=== PATIENT | female | born 1990 | race American Indian/Alaskan Native ===

== ENCOUNTER 2017-07-22 20:00 | Emergency (ER) | payer OTHER ==
[2017-07-22] MEDS ORDERED: NACL 0.9% 1000 ML 1,000 ML IV ONE (22:06)
[2017-07-22] MEDS ORDERED: TORADOL IV ONE (22:06)
[2017-07-22] MEDS ORDERED: ZOFRAN IV ONE (22:06)
--- NOTE | 2017-07-22 22:06 | Emergency Department Report ---
Chief Complaint: Abdominal Pain Stated Complaint: ABD/BACK PAIN Time Seen by Provider: 07/22/17 21:48 - HPI History of Present Illness: Patient is a 27-year-old female presenting with epigastric right upper quadrant and back pain. Patient states pain off and on for the past 2 weeks was been consistent for the last day. Patient is complaining of nausea vomiting also starting today. Patient denies fever diarrhea lower abdominal pain dysuria vaginal discharge at this time. Patient states that the pain is an 8 out of 10 in severity and is crampy - ROS Review of Systems: Review of systems is negative other than the elements in the HPI - Exam Vital Signs: Vital Signs 07/22/17 20:26 Temperature 98.7 F Pulse Rate 86 Respiratory 18 Rate Blood Pressure 128/84 O2 Sat by Pulse 100 Oximetry Physical Exam: Focused physical exam shows epigastric tenderness as well as right upper quadrant tenderness no rebound or guarding normal bowel sounds MSE screening note: Focused history and physical exam performed. Due to findings the following was ordered: Abdominal order set has been ordered as well as a ultrasound of her gallbladder patient will be moved to [place] given pain medicine ED Disposition for MSE Condition: Stable Instructions: Abdominal Pain (ED)
[2017-07-22] MEDS ORDERED: PEPCID IV ONE (22:08)
[2017-07-22 22:39] LABS: Basophils % (Auto) 0.1 % (0.0-1.8); Eosinophils % (Auto) 0.7 % (0.0-4.3); Hematocrit 38.4 % (30.3-42.9); Hemoglobin 12.7 gm/dl (10.1-14.3); Mean Corpuscular HGB Conc 33 % (30-34); Mean Corpuscular Hemoglobin 28 pg (28-32); Mean Corpuscular Volume 86 fl (79-97); Platelet Count 199 K/mm3 (140-440); Red Blood Count 4.48 M/mm3 (3.65-5.03); Red Cell Distribution Width 12.8 % (13.2-15.2); White Blood Count 9.1 K/mm3 (4.5-11.0)
[2017-07-22 23:24] LABS: Alanine Aminotransferase 10 units/L (7-56); Albumin 4.6 g/dL (3.9-5); Albumin/Globulin Ratio 1.2 %; Alkaline Phosphatase 55 units/L (35-129); Anion Gap 17 mmol/L; BUN/Creatinine Ratio 16; Blood Urea Nitrogen 8 mg/dL (7-17); Carbon Dioxide 25 mmol/L (22-30); Chloride 100.9 mmol/L (98-107); Glucose 97 mg/dL (65-100); Lipase 25 units/L (13-60); Potassium 3.9 mmol/L (3.6-5.0); Sodium 139 mmol/L (137-145); Total Protein 8.3 g/dL (6.3-8.2)
--- NOTE | 2017-07-22 23:27 | Ultrasound Report ---
FINAL REPORT PROCEDURE: Limited abdominal ultrasound. TECHNIQUE: Real-time sonography was performed of the right upper quadrant of the abdomen with image documentation. CPT 56560 HISTORY: Right upper quadrant abdominal pain. COMPARISON: No prior studies are available for comparison. FINDINGS: The liver appears homogeneous without focal masses. The portal vein is patent by color flow imaging. The common bile duct measures 2.8 millimeters. The gallbladder is adequately distended with normal wall thickness. There are numerous echogenic gallstones with acoustical shadowing. The technologist recorded a positive Dick sign. The pancreas appears normal. The right kidney is normal in size and has normal echogenicity. There is a small cyst in the right kidney measuring 9 millimeters in maximum diameter. IMPRESSION: Cholelithiasis. Small right renal cyst.
[2017-07-22 23:30] LABS: Bilirubin,Direct < 0.2 mg/dL (0-0.2); Bilirubin,Indirect 0.1 mg/dL
[2017-07-23 00:58] LABS: Bilirubin,Urine NEG (Negative); Blood,Urine NEG (Negative); Ketones,Urine NEG (Negative); Leukocyte Esterase,Urine NEG (Negative); Mucus,Urine FEW /HPF; Nitrite,Urine NEG (Negative); Protein,Urine <15 mg/dL mg/dL (Negative)
--- NOTE | 2017-07-23 02:21 | Emergency Department Report ---
ED Abdominal Pain HPI - General Chief Complaint: Abdominal Pain Stated Complaint: ABD/BACK PAIN Time Seen by Provider: 07/22/17 21:48 Source: patient Mode of arrival: Ambulatory Limitations: No Limitations - History of Present Illness Initial Comments: 27 yo female who comes in today due to abdominal pain times the last two weeks. The patient states that the pain comes on at random times, with nothing seeming to exacerbate it. Denies any past medical history, or taking medications. Denies any nausea, vomiting, diarrhea, fever, chills, or bloody stool. MD Complaint: abdominal pain -: week(s) (2) Location: epigastric Radiation: none Migration to: no migration Severity scale (0 -10): 10 (when it occurs) Quality: aching, sharp Consistency: intermittent Improves With: nothing Worsens With: nothing Context: other (none-takes place randomly ) Associated Symptoms: denies other symptoms Treatments Prior to Arrival: other (none) - Related Data LMP (females 10-50): unknown Previous Rx's Medication Instructions Recorded Last Taken Type HYDROcodone/ACETAMINOPHEN [Pinon 1 each PO Q8HR PRN #20 tablet 07/23/17 Unknown Rx 5-325 Tablet] Ondansetron [Zofran Odt] 4 mg PO Q6HR PRN #20 tab.rapdis 07/23/17 Unknown Rx Allergies Allergy/AdvReac Type Severity Reaction Status Date / Time No Known Allergies Allergy Verified 07/22/17 21:43 ED Review of Systems ROS: Stated complaint: ABD/BACK PAIN Other details as noted in HPI Constitutional: denies: chills, fever Eyes: denies: eye pain, eye discharge, vision change ENT: denies: ear pain, throat pain Respiratory: denies: cough, shortness of breath, wheezing Cardiovascular: denies: chest pain, palpitations Endocrine: no symptoms reported Gastrointestinal: as per HPI Genitourinary: denies: urgency, dysuria, discharge Musculoskeletal: denies: back pain, joint swelling, arthralgia Skin: denies: rash, lesions Neurological: denies: headache, weakness, paresthesias Psychiatric: denies: anxiety, depression Hematological/Lymphatic: denies: easy bleeding, easy bruising ED Past Medical Hx - Past Medical History Previous Medical History?: No - Social History Smoking Status: Never Smoker Substance Use Type: None - Medications Home Medications: Home Medications Medication Instructions Recorded Confirmed Last Taken Type HYDROcodone/ACETAMINOPHEN [Pinon 1 each PO Q8HR PRN #20 tablet 07/23/17 Unknown Rx 5-325 Tablet] Ondansetron [Zofran Odt] 4 mg PO Q6HR PRN #20 tab.rapdis 07/23/17 Unknown Rx ED Physical Exam - General Limitations: No Limitations General appearance: alert, in no apparent distress - Head Head exam: Present: atraumatic, normocephalic - Eye Eye exam: Present: normal appearance - ENT ENT exam: Present: mucous membranes moist - Neck Neck exam: Present: normal inspection - Respiratory Respiratory exam: Present: normal lung sounds bilaterally. Absent: respiratory distress - Cardiovascular Cardiovascular Exam: Present: regular rate, normal rhythm. Absent: systolic murmur, diastolic murmur, rubs, gallop - GI/Abdominal GI/Abdominal exam: Present: soft, normal bowel sounds - Rectal Rectal exam: Present: deferred - Extremities Exam Extremities exam: Present: normal inspection - Back Exam Back exam: Present: normal inspection - Neurological Exam Neurological exam: Present: alert, oriented X3 - Psychiatric Psychiatric exam: Present: normal affect, normal mood - Skin Skin exam: Present: warm, dry, intact, normal color. Absent: rash ED Course Vital Signs 07/22/17 20:26 Temperature 98.7 F Pulse Rate 86 Respiratory 18 Rate Blood Pressure 128/84 O2 Sat by Pulse 100 Oximetry - Reevaluation(s) Reevaluation #1: 07/23/17 02:20 Workup revealed cholelithiasis. ED Medical Decision Making - Lab Data Result diagrams: 07/22/17 22:31 07/22/17 22:31 - Radiology Data Radiology results: report reviewed Cholelithiasis - Medical Decision Making Cholelithiasis - Differential Diagnosis abdominal pain, cholelithiasis Critical care attestation.: If time is entered above; I have spent that time in minutes in the direct care of this critically ill patient, excluding procedure time. ED Disposition Clinical Impression: Cholelithiasis, Abdominal pain Disposition: DC-01 TO HOME OR SELFCARE Is pt being admited?: No Does the pt Need Aspirin: No Condition: Stable Instructions: Abdominal Pain (ED), Biliary Colic (ED) Additional Instructions: Take medicines as prescribed. Follow up with General Surgery for an outpatient laparascopic cholecystectomy. Return to the ED for worsening abdominal pain, nausea, vomiting, fever, or chills. Prescriptions: HYDROcodone/ACETAMINOPHEN [Pinon 5-325 Tablet] 1 each PO Q8HR PRN #20 tablet PRN Reason: Pain Ondansetron [Zofran Odt] 4 mg PO Q6HR PRN #20 tab.rapdis PRN Reason: Nausea And Vomiting Referrals: AURA GEE MD [Primary Care Provider] - 3-5 Days Forms: AMA Form Time of Disposition: 02:24
[2017-07-23 02:43] VITALS: BP 130/86
== END 2017-07-23 02:43 | disposition home or self-care (01) ==
LOC: ED 20:00
DX: K80.20 Calculus of gallbladder without cholecystitis without obstruction (principal)
CPT/HCPCS: 36415; 76705; 80048; 80074; 81001; 83690; 84703; 85025; 96361; 96374; 96375; 99284; J1885; J2405; J7030

== ENCOUNTER 2018-12-06 07:46 | Emergency (ER) | payer MEDICAID, OTHER ==
--- NOTE | 2018-12-06 08:58 | Emergency Department Report ---
ED ENT HPI - General Chief complaint: Dental/Oral Stated complaint: RT SIDE TOOTH PAIN Time Seen by Provider: 12/06/18 08:34 Source: patient Mode of arrival: Ambulatory Limitations: No Limitations - History of Present Illness Initial comments: She is a 28-year-old female who presents to the ER today complaining of dental pain. Pain is right upper molar #1. She does have a dental appointment set up but it is not until next month. She is on no antibiotics. She is controlling her secretions and able to open her mouth without difficulty. She has no fever. MD complaint: tooth pain -: week(s) Quality: aching Consistency: intermittent Improves with: none Worsens with: eating Context- Dental: history of dental caries Associated Symptoms: toothache. denies: fever, cough, gum swelling, pain with swallowing, sore throat, tinnitus, hearing loss, discharge from ear, rhinorrhea - Related Data Previous Rx's Medication Instructions Recorded Last Taken Type Amoxicillin [Trimox CAP] 500 mg PO BID #20 capsule 12/06/18 Unknown Rx Ibuprofen [Motrin] 800 mg PO Q8HR PRN #20 tablet 12/06/18 Unknown Rx Allergies Allergy/AdvReac Type Severity Reaction Status Date / Time No Known Allergies Allergy Verified 07/22/17 21:43 ED Dental HPI - General Chief complaint: Dental/Oral Stated complaint: RT SIDE TOOTH PAIN Time Seen by Provider: 12/06/18 08:34 Source: patient Mode of arrival: Ambulatory Limitations: No Limitations - Related Data Previous Rx's Medication Instructions Recorded Last Taken Type Amoxicillin [Trimox CAP] 500 mg PO BID #20 capsule 12/06/18 Unknown Rx Ibuprofen [Motrin] 800 mg PO Q8HR PRN #20 tablet 12/06/18 Unknown Rx Allergies Allergy/AdvReac Type Severity Reaction Status Date / Time No Known Allergies Allergy Verified 07/22/17 21:43 ED Review of Systems ROS: Stated complaint: RT SIDE TOOTH PAIN Other details as noted in HPI Comment: All other systems reviewed and negative Constitutional: denies: fever ENT: as per HPI, dental pain. denies: ear pain, throat pain, hearing loss, epistaxis ED Past Medical Hx - Past Medical History Previous Medical History?: No - Surgical History Past Surgical History?: No - Family History Family history: no significant - Social History Smoking Status: Never Smoker Substance Use Type: None - Medications Home Medications: Home Medications Medication Instructions Recorded Confirmed Last Taken Type Amoxicillin [Trimox CAP] 500 mg PO BID #20 capsule 12/06/18 Unknown Rx Ibuprofen [Motrin] 800 mg PO Q8HR PRN #20 tablet 12/06/18 Unknown Rx ED Physical Exam - General Limitations: No Limitations General appearance: alert - Head Head exam: Present: atraumatic, normocephalic - Eye Eye exam: Present: normal appearance, PERRL, EOMI - ENT ENT exam: Present: mucous membranes moist - Expanded ENT Exam Expanded Mouth exam: Present: normal external inspection. Absent: drooling, trismus, muffled voice, tongue normal, tongue elevation Teeth exam: Present: dental caries 1 - Other (caries) ED Course Vital Signs 12/06/18 07:57 Temperature 98.0 F Pulse Rate 74 Respiratory 18 Rate Blood Pressure 129/86 [Right] O2 Sat by Pulse 100 Oximetry ED Medical Decision Making - Medical Decision Making simple dental abc intact no trismus controlling secretions taking po has dmd appnt Vital Signs 12/06/18 07:57 Temperature 98.0 F Pulse Rate 74 Respiratory 18 Rate Blood Pressure 129/86 [Right] O2 Sat by Pulse 100 Oximetry Critical care attestation.: If time is entered above; I have spent that time in minutes in the direct care of this critically ill patient, excluding procedure time. ED Disposition Clinical Impression: Pain, dental Disposition: - TO HOME OR SELFCARE Is pt being admited?: No Does the pt Need Aspirin: No Condition: Stable Additional Instructions: follow up with dentist soy med as ordered today diet as tolerated activity as tolerated hydrate well with water Referrals: MARTIN DIA MD [Primary Care Provider] - 3-5 Days [facility] [Outside] - 3-5 Days [facility] [Outside] - 3-5 Days Time of Disposition: 09:02
[2018-12-06] MEDS ORDERED: BICILLIN L-A IM ONE (08:59)
[2018-12-06] MEDS ORDERED: IBUPROFEN PO ONE (08:59)
[2018-12-06 09:41] VITALS: BP 124/84
== END 2018-12-06 09:39 | disposition home or self-care (01) ==
LOC: ED 07:46
DX: K08.89 Other specified disorders of teeth and supporting structures (principal)
CPT/HCPCS: 96372; 99282; J0561

== ENCOUNTER 2019-07-28 22:26 | Emergency (ER) | payer SELFPAY ==
[2019-07-29 02:09] LABS: Basophils % (Auto) 0.2 % (0.0-1.8); Eosinophils # (Auto) 0.1 K/mm3 (0.0-0.4); Eosinophils % (Auto) 1.7 % (0.0-4.3); Hematocrit 34.9 % (30.3-42.9); Hemoglobin 11.8 gm/dl (10.1-14.3); Lymphocytes # (Auto) 2.4 K/mm3 (1.2-5.4); Lymphocytes % (Auto) 38.7 % (13.4-35.0); Mean Corpuscular HGB Conc 34 % (30-34); Mean Corpuscular Volume 86 fl (79-97); Monocytes # (Auto) 0.3 K/mm3 (0.0-0.8); Monocytes % (Auto) 5.6 % (0.0-7.3); Platelet Count 200 K/mm3 (140-440); Red Blood Count 4.07 M/mm3 (3.65-5.03)
[2019-07-29 02:12] LABS: Alanine Aminotransferase 9 units/L (7-56); Albumin 4.1 g/dL (3.9-5); BUN/Creatinine Ratio 14; Blood Urea Nitrogen 7 mg/dL (7-17); Calcium 9.1 mg/dL (8.4-10.2); Hemolysis Index 54
[2019-07-29 02:46] LABS: Bacteria,Urine 1+ /HPF (Negative); Bilirubin,Urine NEG (Negative); Blood,Urine NEG (Negative); Color,Urine Yellow (Yellow); Mucus,Urine FEW /HPF; Protein,Urine <15 mg/dL mg/dL (Negative); Urobilinogen,Urine < 2.0 mg/dL (<2.0)
[2019-07-29] MEDS ORDERED: ALUM-MAG HYDROXIDE-SIMETHICONE 200-200-20MG/5ML ORAL LIQD 30 ML PO ONE (04:34)
[2019-07-29] MEDS ORDERED: LIDOCAINE VISCOUS 2% 15 ML ORAL LIQD PO ONE (04:34)
[2019-07-29] MEDS ORDERED: DICYCLOMINE 20 MG TAB PO ONE (04:35)
--- NOTE | 2019-07-29 04:38 | Emergency Department Report ---
ED General Adult HPI - General Chief complaint: Abdominal Pain Stated complaint: ABD PAIN/VOMITING/WEAKNESS Time Seen by Provider: 07/29/19 04:08 Source: patient Mode of arrival: Ambulatory Limitations: No Limitations - History of Present Illness Initial comments: Patient is a 29-year-old female presents emergency room with complaints of epigastric abdominal pain that began and is a 29-year-old female presents emergency room with complaints of epigastric abdominal pain that began 5 days ago. Patient describes the pain as a burning sensation and feels like indigestion. She states earlier in the week she had a couple episodes of nausea and vomiting that has completely resolved. She states that her discomfort has improved over the last couple days. she denies any fever, diarrhea, urinary sx. she states she has had this discomfort in the past. She denies any past medical history allergies medications. She states her last menstrual cycle was 07/17/2019. - Related Data Previous Rx's Medication Instructions Recorded Last Taken Type Amoxicillin [Trimox CAP] 500 mg PO BID #20 capsule 12/06/18 Unknown Rx Ibuprofen [Motrin] 800 mg PO Q8HR PRN #20 tablet 12/06/18 Unknown Rx Famotidine [Pepcid] 40 mg PO QHS #30 tablet 07/29/19 Unknown Rx Ondansetron [Zofran Odt] 4 mg PO Q8HR PRN #10 tab.rapdis 07/29/19 Unknown Rx Sucralfate [Carafate] 1 gm PO ACHS 7 Days #21 tablet 07/29/19 Unknown Rx Allergies Allergy/AdvReac Type Severity Reaction Status Date / Time No Known Allergies Allergy Verified 07/22/17 21:43 ED Review of Systems ROS: Stated complaint: ABD PAIN/VOMITING/WEAKNESS Other details as noted in HPI Comment: All other systems reviewed and negative ED Past Medical Hx - Past Medical History Previous Medical History?: No - Surgical History Past Surgical History?: No - Social History Smoking Status: Never Smoker Substance Use Type: None - Medications Home Medications: Home Medications Medication Instructions Recorded Confirmed Last Taken Type Amoxicillin [Trimox CAP] 500 mg PO BID #20 capsule 12/06/18 Unknown Rx Ibuprofen [Motrin] 800 mg PO Q8HR PRN #20 tablet 12/06/18 Unknown Rx Famotidine [Pepcid] 40 mg PO QHS #30 tablet 07/29/19 Unknown Rx Ondansetron [Zofran Odt] 4 mg PO Q8HR PRN #10 tab.rapdis 07/29/19 Unknown Rx Sucralfate [Carafate] 1 gm PO ACHS 7 Days #21 tablet 07/29/19 Unknown Rx ED Physical Exam - General Limitations: No Limitations General appearance: alert, in no apparent distress - Head Head exam: Present: atraumatic, normocephalic - Eye Eye exam: Present: normal appearance - ENT ENT exam: Present: mucous membranes moist - Respiratory Respiratory exam: Present: normal lung sounds bilaterally. Absent: respiratory distress, wheezes, rales, rhonchi, stridor, chest wall tenderness, accessory muscle use, decreased breath sounds, prolonged expiratory - Cardiovascular Cardiovascular Exam: Present: regular rate, normal rhythm, normal heart sounds. Absent: systolic murmur, diastolic murmur, rubs, gallop - GI/Abdominal GI/Abdominal exam: Present: soft, tenderness (mild epigastric), normal bowel sounds. Absent: distended, guarding, rebound, rigid - Neurological Exam Neurological exam: Present: alert, oriented X3 - Psychiatric Psychiatric exam: Present: normal affect, normal mood - Skin Skin exam: Present: warm, dry, intact ED Course Vital Signs 07/28/19 07/29/19 22:43 05:28 Temperature 98.6 F 97.9 F Pulse Rate 81 74 Respiratory 14 18 Rate Blood Pressure 132/78 125/87 O2 Sat by Pulse 98 100 Oximetry ED Medical Decision Making - Lab Data Result diagrams: 07/29/19 01:27 07/29/19 01:27 Lab Results 07/29/19 07/29/19 07/29/19 Range/Units 01:27 01:27 01:27 WBC 6.3 (4.5-11.0) K/mm3 RBC 4.07 (3.65-5.03) M/mm3 Hgb 11.8 (10.1-14.3) gm/dl Hct 34.9 (30.3-42.9) % MCV 86 (79-97) fl MCH 29 (28-32) pg MCHC 34 (30-34) % RDW 13.0 L (13.2-15.2) % Plt Count 200 (140-440) K/mm3 Lymph % (Auto) 38.7 H (13.4-35.0) % [place] % (Auto) 5.6 (0.0-7.3) % Eos % (Auto) 1.7 (0.0-4.3) % Baso % (Auto) 0.2 (0.0-1.8) % Lymph # 2.4 (1.2-5.4) K/mm3 [place] # 0.3 (0.0-0.8) K/mm3 Eos # 0.1 (0.0-0.4) K/mm3 Baso # 0.0 (0.0-0.1) K/mm3 Seg Neutrophils % 53.8 (40.0-70.0) % Seg Neutrophils # 3.4 (1.8-7.7) K/mm3 Sodium 142 (137-145) mmol/L Potassium 3.6 (3.6-5.0) mmol/L Chloride 106.7 (98-107) mmol/L Carbon Dioxide 24 (22-30) mmol/L Anion Gap 15 mmol/L BUN 7 (7-17) mg/dL Creatinine 0.5 L (0.7-1.2) mg/dL Estimated GFR > 60 ml/min BUN/Creatinine Ratio 14 % Glucose 93 (65-100) mg/dL Calcium 9.1 (8.4-10.2) mg/dL Total Bilirubin 0.20 (0.1-1.2) mg/dL AST 15 (5-40) units/L ALT 9 (7-56) units/L Alkaline Phosphatase 43 (35-129) units/L Total Protein 7.9 (6.3-8.2) g/dL Albumin 4.1 (3.9-5) g/dL Albumin/Globulin Ratio 1.1 % Lipase 26 (13-60) units/L HCG, Qual Negative (Negative) Urine Color (Yellow) Urine Turbidity (Clear) Urine pH (5.0-7.0) Ur Specific [place] (1.003-1.030) Urine Protein (Negative) mg/dL Urine Glucose (UA) (Negative) mg/dL Urine Ketones (Negative) mg/dL Urine Blood (Negative) Urine Nitrite (Negative) Urine Bilirubin (Negative) Urine Urobilinogen (<2.0) mg/dL Ur Leukocyte Esterase (Negative) Urine WBC (Auto) (0.0-6.0) /HPF Urine RBC (Auto) (0.0-6.0) /HPF U Epithel Cells (Auto) (0-13.0) /HPF Urine Bacteria (Auto) (Negative) /HPF Urine Mucus /HPF 07/29/19 Range/Units 02:07 WBC (4.5-11.0) K/mm3 RBC (3.65-5.03) M/mm3 Hgb (10.1-14.3) gm/dl Hct (30.3-42.9) % MCV (79-97) fl MCH (28-32) pg MCHC (30-34) % RDW (13.2-15.2) % Plt Count (140-440) K/mm3 Lymph % (Auto) (13.4-35.0) % [place] % (Auto) (0.0-7.3) % Eos % (Auto) (0.0-4.3) % Baso % (Auto) (0.0-1.8) % Lymph # (1.2-5.4) K/mm3 [place] # (0.0-0.8) K/mm3 Eos # (0.0-0.4) K/mm3 Baso # (0.0-0.1) K/mm3 Seg Neutrophils % (40.0-70.0) % Seg Neutrophils # (1.8-7.7) K/mm3 Sodium (137-145) mmol/L Potassium (3.6-5.0) mmol/L Chloride (98-107) mmol/L Carbon Dioxide (22-30) mmol/L Anion Gap mmol/L BUN (7-17) mg/dL Creatinine (0.7-1.2) mg/dL Estimated GFR ml/min BUN/Creatinine Ratio % Glucose (65-100) mg/dL Calcium (8.4-10.2) mg/dL Total Bilirubin (0.1-1.2) mg/dL AST (5-40) units/L ALT (7-56) units/L Alkaline Phosphatase (35-129) units/L Total Protein (6.3-8.2) g/dL Albumin (3.9-5) g/dL Albumin/Globulin Ratio % Lipase (13-60) units/L HCG, Qual (Negative) Urine Color Yellow (Yellow) Urine Turbidity Clear (Clear) Urine pH 5.0 (5.0-7.0) Ur Specific [place] 1.012 (1.003-1.030) Urine Protein <15 mg/dl (Negative) mg/dL Urine Glucose (UA) Neg (Negative) mg/dL Urine Ketones Neg (Negative) mg/dL Urine Blood Neg (Negative) Urine Nitrite Neg (Negative) Urine Bilirubin Neg (Negative) Urine Urobilinogen < 2.0 (<2.0) mg/dL Ur Leukocyte Esterase Neg (Negative) Urine WBC (Auto) 2.0 (0.0-6.0) /HPF Urine RBC (Auto) 2.0 (0.0-6.0) /HPF U Epithel Cells (Auto) 4.0 (0-13.0) /HPF Urine Bacteria (Auto) 1+ (Negative) /HPF Urine Mucus Few /HPF - Medical Decision Making Patient is a 29-year-old female presents emergency room with complaints of epigastric abdominal pain that began and is a 29-year-old female presents emergency room with complaints of epigastric abdominal pain that began 5 days ago. Patient describes the pain as a burning sensation and feels like indigestion. She states earlier in the week she had a couple episodes of nausea and vomiting that has completely resolved. She states that her discomfort has improved over the last couple days. she denies any fever, diarrhea, urinary sx. she states she has had this discomfort in the past. She denies any past medical history allergies medications. She states her last menstrual cycle was 07/17/2019. VSS. on exam: mild epigastric. labs are normal. UA without evidence of UTI. negative for . Patient given GI cocktail and symptoms improved. Patient's ultrasound from 2 years ago she had cholelithiasis, she states she never followed up with anyone. Labs are normal, no signs of biliary obstruction. No signs of cholangitis as her vitals are normal no leukocytosis. will have patient follow-up with a GI doctor and a general surgeon. pt given prescription for Carafate, Pepcid, Zofran. advised pt to please take medication as prescribed. Please follow-up with a general surgeon and a GI doctor in the next 2-3 days. Return to the emergency room for any new or worsening symptoms. pt given strict return precautions and advised patient to return to the emergency room immediately for any worsening abdominal pain, fever, chills, intractable nausea or vomiting, etc. - Differential Diagnosis PUD, GERD, pancreatitis, gastritis, cholecystitis, cholelithiasis Critical care attestation.: If time is entered above; I have spent that time in minutes in the direct care of this critically ill patient, excluding procedure time. ED Disposition Clinical Impression: Epigastric abdominal pain Disposition: TO HOME OR SELFCARE Is pt being admited?: No Does the pt Need Aspirin: No Condition: Stable Instructions: Cholelithiasis (ED), Diet for Ulcers and Gastritis (ED), Gastroesophageal Reflux Disease (ED) Additional Instructions: Please take medication as prescribed. Please follow-up with a general surgeon and a GI doctor in the next 2-3 days. Return to the emergency room for any new or worsening symptoms. Prescriptions: Famotidine [Pepcid] 40 mg PO QHS #30 tablet Sucralfate [Carafate] 1 gm PO ACHS 7 Days #21 tablet Ondansetron [Zofran Odt] 4 mg PO Q8HR PRN #10 tab.rapdis PRN Reason: Nausea And Vomiting Referrals: [facility] [Provider Group] - 2-3 Days ALCIDES PILLAI MD [Staff Physician] - 2-3 Days Forms: Work/School Release Form(ED) Time of Disposition: 05:09 Print Language: BRITISH
[2019-07-29 05:31] VITALS: BP 125/87
== END 2019-07-29 05:31 | disposition home or self-care (01) ==
LOC: ED 22:26
DX: R10.13 Epigastric pain (principal); R11.2 Nausea with vomiting, unspecified
CPT/HCPCS: 36415; 80053; 81001; 83690; 84703; 85025; 99283